=== PATIENT | female | born 1965 | race Caucasian/White ===

== ENCOUNTER 2025-11-01 17:54 | Inpatient (IN) | payer BC, OTHER ==
[2025-11-01 18:38] LABS: BASOPHILS ABSOLUTE AUTO 0.10 K/uL (0.00-0.10); BASOPHILS PERCENT AUTO 0.6 % (0.1-1.3); EOSINOPHILS ABSOLUTE AUTO 0.13 K/uL (0.00-0.40); EOSINOPHILS PERCENT AUTO 0.8 % (0.0-5.4); IMMATURE GRAN ABSOLUTE AUTO 0.14 K/uL (0.00-0.23); IMMATURE GRAN PERCENT AUTO 0.9 % (0.0-0.7); LYMPHOCYTES ABSOLUTE AUTO 2.58 K/uL (0.8-3.3); LYMPHOCYTES PERCENT AUTO 16.6 % (11.4-47.7); MONOCYTES ABSOLUTE AUTO 1.05 K/uL (0.20-0.90); MONOCYTES PERCENT AUTO 6.7 % (3.3-12.6); NEUTROPHILS ABSOLUTE AUTO 11.56 K/uL (1.0-7.6); NEUTROPHILS PERCENT AUTO 74.4 % (40.0-78.1); PLATELET COUNT,PLT 429 K/uL (130-375); RED BLOOD CELL COUNT 2.82 M/uL (3.77-5.24); WHITE BLOOD CELL COUNT,WBC 15.6 K/uL (3.2-11.0)
[2025-11-01 19:00] LABS: A/G RATIO 1.1 (1.2-2.2); ALANINE AMINOTRANSFERASE,ALT 21 U/L (12-78); ASPARTATE AMNIOTRANSFERASE,AST 16 U/L (15-37); BILIRUBIN TOTAL 0.2 mg/dL (0.2-1.0); BLOOD UREA NITROGEN,BUN 29 mg/dL (7-18); CARBON DIOXIDE,CO2 28 mmol/L (21-32); CHLORIDE,CL 106 mmol/L (100-108); CREATININE 1.6 mg/dL (0.6-1.0); EST CRCL DRUG DOSING (CG) 29.94 mL/min; ESTIMATED GFR 37 mL/min (>60); GLUCOSE RANDOM 59 mg/dL (74-106); POTASSIUM,K 3.2 mmol/L (3.6-5.2); PROTEIN TOTAL,TP 7.2 g/dL (6.4-8.2); SODIUM,NA 144 mmol/L (140-148)
[2025-11-01] MEDS ORDERED: Lidocaine 1% 2 ML ONE (22:04)
[2025-11-01] MEDS: Iopamidol 612 MG/ML 100 ML Bottle IV PRN (22:48)
[2025-11-01] MEDS: Sodium Chloride 0.9% 10 ML Syringe FLUSH PRN (22:48)
[2025-11-01 23:39] LABS: APPEARANCE,URINE CLEAR (CLEAR); GLUCOSE,URINE NEGATIVE (NEGATIVE); OCCULT BLOOD,URINE NEGATIVE (NEGATIVE)
[2025-11-01 23:58] LABS: SQUAMOUS EPITHELIAL CELLS,UR FEW /HPF; UROTHELIAL CELLS,URINE NOT SEEN /HPF
[2025-11-02] MEDS ORDERED: Ondansetron 4 MG Tab.DIS PO PRN (02:23)
[2025-11-02] MEDS ORDERED: Naloxone 0.4 MG/ML SDV IVPUSH PRN (02:23)
[2025-11-02] MEDS: Ondansetron 4 MG/2 ML SDV IV PRN (02:32)
[2025-11-02] MEDS: metroNIDAZOLE/Normal Saline 500 MG in Premix Bag 1 BAG IV SCH (03:21)
[2025-11-02] MEDS: Ciprofloxacin in D5W 400 MG in Premix Bag 1 BAG IV SCH ×2 (04:29→15:34)
[2025-11-02 06:09] LABS: BASOPHILS ABSOLUTE AUTO 0.07 K/uL (0.00-0.10); BASOPHILS PERCENT AUTO 0.6 % (0.1-1.3); EOSINOPHILS ABSOLUTE AUTO 0.14 K/uL (0.00-0.40); EOSINOPHILS PERCENT AUTO 1.1 % (0.0-5.4); IMMATURE GRAN ABSOLUTE AUTO 0.08 K/uL (0.00-0.23); IMMATURE GRAN PERCENT AUTO 0.6 % (0.0-0.7); LYMPHOCYTES ABSOLUTE AUTO 2.66 K/uL (0.8-3.3); LYMPHOCYTES PERCENT AUTO 21.4 % (11.4-47.7); MONOCYTES ABSOLUTE AUTO 0.87 K/uL (0.20-0.90); MONOCYTES PERCENT AUTO 7.0 % (3.3-12.6); NEUTROPHILS ABSOLUTE AUTO 8.63 K/uL (1.0-7.6); NEUTROPHILS PERCENT AUTO 69.3 % (40.0-78.1); PLATELET COUNT,PLT 282 K/uL (130-375); RED BLOOD CELL COUNT 3.16 M/uL (3.77-5.24); WHITE BLOOD CELL COUNT,WBC 12.5 K/uL (3.2-11.0)
[2025-11-02 06:27] LABS: BLOOD UREA NITROGEN,BUN 20.0 mg/dL (7-18); CARBON DIOXIDE,CO2 25.0 mmol/L (21-32); CHLORIDE,CL 107.0 mmol/L (100-108); CREATININE 1.0 mg/dL (0.6-1.0); EST CRCL DRUG DOSING (CG) 47.91 mL/min; ESTIMATED GFR 65.0 mL/min (>60); GLUCOSE RANDOM 109.0 mg/dL (74-106); POTASSIUM,K 3.5 mmol/L (3.6-5.2); SODIUM,NA 141.0 mmol/L (140-148)
[2025-11-02] MEDS: Ketorolac 30 MG/ML SDV IVPUSH PRN (10:57)
[2025-11-02] MEDS ORDERED: Non-Formulary Medication 1 Each (Tizanidine [Zanaflex] 4 MG Tablet) PO PRN (13:44)
[2025-11-02] MEDS ORDERED: ALPRAZOLAM 2 MG PO PRN (13:44)
[2025-11-02] MEDS ORDERED: DEXTROAMPHETAMINE PO PRN (13:44)
[2025-11-02] MEDS ORDERED: AMPHETAMINE PO PRN (13:44)
[2025-11-02] MEDS ORDERED: Amphetamine/Dextroamphetamine Salts 10 MG Tab PO PRN (14:07)
[2025-11-02] MEDS: Potassium Chloride 20 MEQ Tab.ER PO ONE (14:21)
[2025-11-02] MEDS ORDERED: Polyethylene Glycol 3350 Powder 238 GM Bot PO ONE (15:00)
[2025-11-02] MEDS ORDERED: Non-Formulary Medication 1 Each (Rosuvastatin [Crestor] 20 MG Tablet) PO SCH (21:00)
[2025-11-02] MEDS ORDERED: METOPROLOL TARTRATE 75 MG PO SCH (21:00)
[2025-11-03 06:26] LABS: PLATELET COUNT,PLT 309.0 K/uL (130-375); RED BLOOD CELL COUNT 3.13 M/uL (3.77-5.24); WHITE BLOOD CELL COUNT,WBC 8.9 K/uL (3.2-11.0)
[2025-11-03 06:47] LABS: BLOOD UREA NITROGEN,BUN 7.0 mg/dL (7-18); CARBON DIOXIDE,CO2 28.0 mmol/L (21-32); CHLORIDE,CL 109.0 mmol/L (100-108); CREATININE 0.9 mg/dL (0.6-1.0); EST CRCL DRUG DOSING (CG) 53.23 mL/min; ESTIMATED GFR 74.0 mL/min (>60); GLUCOSE RANDOM 103.0 mg/dL (74-106); POTASSIUM,K 4.2 mmol/L (3.6-5.2); SODIUM,NA 142.0 mmol/L (140-148)
[2025-11-03] MEDS ORDERED: Magnesium Sulfate 2 GM/50 mL 2 GM in Premix Bag 1 BAG IV SCH (07:30)
[2025-11-03] MEDS ORDERED: Non-Formulary Medication 1 Each (Omeprazole Magnesium [Prilosec Otc] 20 MG Tablet.Dr) PO SCH (07:30)
[2025-11-03] MEDS: buPROPion 150 MG Tab.ER PO SCH (08:41)
[2025-11-03] MEDS: Amphetamine/Dextroamphetamine Salts 10 MG Cap.ER PO SCH (08:49)
[2025-11-03] MEDS: Magnesium Sulfate 2 GM/50 mL 2 GM in Premix Bag 1 BAG IV SCH (08:49)
[2025-11-03] MEDS ORDERED: Non-Formulary Medication 1 Each (Amphetamine/Dextroamphetamine [Adderall Xr] 20 MG Cap.Er) PO SCH (09:00)
[2025-11-03] MEDS ORDERED: BUPROPION HCL 200 MG PO SCH (09:00)
== END 2025-11-03 14:08 | disposition home or self-care (01) | DRG 812 ==
LOC: JP.ED 17:54 → JP.ICU 11-02 01:11
PROVIDERS: ADMIT Nurse Practitioner; ATTEND Hospitalist
PROC: 30233N1 Transfusion of Nonautologous Red Blood Cells into Peripheral Vein, Percutaneous Approach (ICD-10-PCS; principal; 2025-11-02)
DX: D62 Acute posthemorrhagic anemia (principal); K92.1 Melena; K52.9 Noninfective gastroenteritis and colitis, unspecified; E87.6 Hypokalemia; E86.0 Dehydration; G43.909 Migraine, unspecified, not intractable, without status migrainosus; F41.9 Anxiety disorder, unspecified; F32.A Depression, unspecified; D50.9 Iron deficiency anemia, unspecified; E78.00 Pure hypercholesterolemia, unspecified; N18.9 Chronic kidney disease, unspecified; I12.9 Hypertensive chronic kidney disease with stage 1 through stage 4 chronic kidney disease, or unspecified chronic kidney disease; Z86.16 Personal history of COVID-19; Z90.49 Acquired absence of other specified parts of digestive tract; Z98.890 Other specified postprocedural states; Z98.49 Cataract extraction status, unspecified eye; Z79.899 Other long term (current) drug therapy; Z98.891 History of uterine scar from previous surgery; Z88.8 Allergy status to other drugs, medicaments and biological substances; Z90.710 Acquired absence of both cervix and uterus
CPT/HCPCS: 36410; 36415; 36430; 71046; 71046-26; 74177; 80048; 80053; 81001; 83735; 85018; 85025; 85027; 86140; 86850; 86900; 86901; 86920; 86922; 87046; 87427; 89055; 96361; 96365; 99223; 99238; 99285; 99285-25; A9270-GY; J0744; J1171; J1836; J1885; J2003; J2405; J2470; J3475; J3480; J7030; P9016; Q9967